=== PATIENT | male | born 1990 | race Caucasian/White ===

== ENCOUNTER 2020-06-02 22:42 | Inpatient (IN) | payer OTHER, SELFPAY ==
[2020-06-02 22:49] VITALS: BP 135/84; PULSE 106; RESP 16; TEMP 36.8; O2SAT 99; BMI 34.0
--- NOTE | 2020-06-02 23:07 | ECG_ITS ---
Test Reason : CHEST PAIN Blood Pressure : / mmHG Vent. Rate : 101 BPM Atrial Rate : 101 BPM P-R Int : 148 ms QRS Dur : 082 ms QT Int : 324 ms P-R-T Axes : 012 -08 012 degrees QTc Int : 420 ms Sinus tachycardia Minimal voltage criteria for LVH, may be normal variant Cannot rule out Anterior infarct , age undetermined Abnormal ECG No previous ECGs available Referred By: Dariana Colon Electronically Signed By:SIMEON ROSARIO MD
--- NOTE | 2020-06-02 23:07 | XR_ITS ---
EXAMINATION: XR CHEST CLINICAL INFORMATION: Right-sided chest pain and cough COMPARISON: None TECHNIQUE: Frontal view of the chest was obtained. FINDINGS: Lungs are hypoinflated. There is some ill-defined patchy density seen at the lung bases which could represent atelectasis or possibly infiltrates. No effusions are seen. The heart size is normal. XR/XR chest 1V IMPRESSION: Hypoinflated lungs with basilar atelectasis versus ill-defined patchy infiltrates.
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
[2020-06-02] MEDS: Morphine Sulfate 2 MG/ML CARTRIDGE IVPUSH (23:47)
[2020-06-02] MEDS: 0.9 % Sodium Chloride 1,000 ML 999 ML IVCONT (23:48)
[2020-06-02] MEDS: Ketorolac Tromethamine 15 MG/ML VIAL IV (23:48)
[2020-06-03] VITALS: BP 120/72; PULSE 100; RESP 18; O2SAT 97
[2020-06-03 00:06] LABS: Basophils Percent Auto 0.3 % (0-2); Eosinophils Absolute Auto 0.1 X10*3/uL (0.0-0.4); Eosinophils Percent Auto 0.9 % (0-4); Hematocrit 42.8 % (42-52); Hemoglobin 14.3 g/dl (14.0-18.0); Imm Gran Abs Auto 0.03 X10*3/uL (0.00-0.03); Imm Gran Pct Auto 0.3 % (0.0-0.4); MANUAL DIFF FLAG NO; Mean Corpuscular HGB Conc 33.4 g/dl (31.0-36.0); Mean Corpuscular Hemoglobin 31.4 pg (27.0-33.0); Mean Corpuscular Volume 93.9 fL (80-98); Mean Platelet Volume 10.1 fL (9.4-12.4); Monocytes Absolute Auto 0.9 X10*3/uL (0.1-1.2); Monocytes Percent Auto 7.6 % (2-11); Neutrophils Absolute Auto 9.2 X10*3/uL (2.0-8.3); Neutrophils Percent Auto 81.9 % (45-73); Platelet Count 204 X10*3/uL (160-400); Red Blood Count 4.56 X10*6/uL (4.60-5.80); Red Cell Distribution Width 11.8 % (11.0-16.0); White Blood Count 11.2 X10*3/uL (4.8-10.8)
[2020-06-03 00:25] LABS: Lactic Acid 1.8 mmol/L (0.5-2.0)
[2020-06-03 00:27] LABS: COVID-19 Test Negative (Negative)
[2020-06-03 00:30] LABS: Alanine Aminotransferase 33 U/L (0-40); Albumin Level 4.2 g/dL (3.5-5.0); Alkaline Phosphatase 56 U/L (39-117); Anion Gap 14 (12-20); Aspartate Amino Transferase 16 U/L (5-37); Bilirubin Direct 0.5 mg/dL (0.0-0.5); Blood Urea Nitrogen 13 mg/dL (9-16); Carbon Dioxide 29 mmol/L (22-29); Chloride 102 mmol/L (96-108); Creatinine Clr Calc Pharmacy 159.8; Estimated Glomerular Filt Rate > 60; Glucose Random 106 mg/dL (60-115); Lipase 14 U/L (8-78); Sodium 141 mmol/L (135-145); Total Protein 6.6 g/dL (6.5-8.0)
[2020-06-03 00:34] LABS: B Type Natriuretic Peptide < 10 pg/mL (<100); Troponin-I High Sensitivity < 3.5 ng/L (<3.5-35.0)
[2020-06-03 00:36] LABS: D Dimer 2149 NG/ML
--- NOTE | 2020-06-03 01:23 | CT_ITS ---
EXAMINATION: CT ANGIOGRAM OF THE CHEST WITH AND WITHOUT CONTRAST (CT PULMONARY ANGIOGRAM FOR PE) CLINICAL INFORMATION: Reason for Exam Right-sided chest pain, elevated D-dimer COMPARISON: None TECHNIQUE: Prior to contrast administration, noncontrast localization images were obtained. Subsequently, multidetector volumetric imaging was performed from the thoracic inlet to below the diaphragms following the administration of 65.2 mL Omnipaque 350 intravenous contrast. No contrast reaction reported Sagittal, coronal, and MIP oblique sagittal reformatted images were obtained on the CT workstation, uploaded to PACS, and reviewed. This CT examination was performed using dose optimization techniques as appropriate, variously including the following: *Automated exposure control *Adjustment of mA and/or kV according to patient size (this includes techniques or standardized protocols for targeted exams where dose is matched to indication/reason for exam; i.e. extremities or head) *Use of iterative reconstruction technique Total exam dose-length product 570 mGy-cm FINDINGS: QUALITY OF STUDY/CONTRAST BOLUS: Satisfactory. PULMONARY ARTERIES: Intraluminal filling defects are identified within the segmental and subsegmental branches at the basilar segments of the left lower lobe and in the lobar, segmental, and subsegmental branches of the right upper, middle, and lower lobes. The small filling defects are suspected within the segmental branches of the left upper lobe as well. No central pulmonary emboli. THORACIC AORTA: No aneurysm or dissection. LUNG: There is a wedge-shaped region of mixed groundglass and dense consolidation in the lateral basilar segment of the right lower lobe, most likely corresponding to pulmonary infarct. A smaller wedge-shaped focus of airspace opacification in the posterior basilar segment of the right lower lobe may correspond to atelectasis or a smaller infarct. Multifocal bandlike atelectasis is present in both lungs, most notably in the lingula and lower lobes. Additional patchy foci of groundglass attenuation in the lingula and left upper lobe are more nonspecific. Central airways are clear PLEURA: No pleural effusion or pneumothorax. MEDIASTINUM: Normal heart size. No pericardial effusion. No hilar or mediastinal lymphadenopathy. No evidence of septal bowing or right heart strain. CHEST WALL/AXILLA: No axillary or internal mammary lymphadenopathy. OSSEOUS STRUCTURES: No acute or suspicious osseous abnormality. UPPER ABDOMEN: Hepatic steatosis is suggested by the rotator hypoattenuation of the hepatic parenchyma. Otherwise, no acute upper abdominal abnormalities. No reflux of contrast into the hepatic veins to suggest elevated right heart pressures. CT/CT angio chest PE protocol IMPRESSION: Moderate volume of acute pulmonary emboli throughout both lungs without evidence of right heart strain or elevated pressures. Acute pulmonary infarct in the lateral basilar segment of the right lower lobe. Multifocal atelectasis. Patchy groundglass opacities in the left upper lobe and lingula may be due to the pulmonary emboli, though a superimposed infectious process is also possible. Query COVID positivity. VTE: positive This critical result was discussed by telephone with Dr. Clark at 3:07 AM on 06/03/2020.
[2020-06-03] MEDS: HYDROmorphone HCl 1 MG/ML SYRINGE IVPUSH (01:40)
[2020-06-03] MEDS: iohexoL 350 MG/ML 100 ML INFUS..BTL 65 ML IV (02:52)
[2020-06-03 03:19] VITALS: PULSE 68; O2SAT 94
--- NOTE | 2020-06-03 03:20 | PC.NURSE ---
IN ROOM FOR RE-EVAL. PT IS POSSIBLE ADMISSION. PT AWAITING FOR ROOM ASSIGNMENT.
--- NOTE | 2020-06-03 05:30 | PC.NURSE ---
HOSPITALIST IN ROOM FOR EVAL.
[2020-06-03 05:36] LABS: Hematocrit 38.7 % (42-52); Hemoglobin 12.8 g/dl (14.0-18.0); Mean Corpuscular HGB Conc 33.1 g/dl (31.0-36.0); Mean Corpuscular Hemoglobin 31.1 pg (27.0-33.0); Mean Corpuscular Volume 94.2 fL (80-98); Mean Platelet Volume 10.2 fL (9.4-12.4); Platelet Count 167 X10*3/uL (160-400); Red Blood Count 4.11 X10*6/uL (4.60-5.80); Red Cell Distribution Width 11.8 % (11.0-16.0); White Blood Count 8.9 X10*3/uL (4.8-10.8)
--- NOTE | 2020-06-03 05:40 | PM.IMHP ---
History of Present Illness Date of Service: 06/03/20 Chief Complaint: SOB, right chest pain No significant past medical history who presents to the hospital with complaints of shortness of breath for the past 1 day. Patient reports that he started feeling pain in his right shorter that then traveled to his right chest, difficulty breathing, difficulty taking a deep breath without having pain in the right chest and decided to come to the ED. He is not feeling very tired and fatigued. He otherwise denies having significant cough, no swelling in his leg, no recent surgery, no recent travel, no recent sick contacts. Patient reports that he has been working the whole time and has not been inactive or bed-bound recently. He has no abdominal pain nausea or vomiting, no diarrhea constipation. No urinary symptoms and no lower extremity edema. Patient hemodynamically stable with a heart rate of 106 otherwise no abnormal vitals Lab significant for normal WBC, hemoglobin of 12.8, hematocrit of 30.7, otherwise unremarkable CMP. COVID-19 negative, CT angiogram shows moderate volume of acute pulmonary emboli throughout both lungs without evidence of right heart strain or elevated Past medical history: Denies Surgical history: Ankle surgery, appendectomy, tummy tuck Family history: Mother has type 1 diabetes, cancer runs in family although not in his immediate Social history: Comes from home, denies any tobacco alcohol or illicit drugs. Review of Systems Review of Systems: Yes all other systems are reviewed and are negative [facility] Social History Advance Directives: No Meds Allergies Allergy/AdvReac Type Severity Reaction Status Date / Time No Known Allergies Allergy Verified 06/02/20 23:06 Home Medications Medication Instructions Recorded Confirmed Type dextroamphetamine-amphetamine 20 mg PO DAILY 06/03/20 06/03/20 History [Adderall] gabapentin 300 mg PO TID 06/03/20 06/03/20 History Physical Exam Vital Signs and Narrative: Vital Signs: Last Vital Signs Temp 98.2 F 06/02/20 22:49 Pulse 100 06/03/20 00:00 Resp 18 06/03/20 00:00 BP 120/72 06/03/20 00:00 Pulse Ox 97 06/03/20 00:00 Body Mass Index 34.0 Const: Other: Appears tired General: cooperative and no acute distress Orientation/consciousness: patient oriented x3 Eyes: General: appearance normal, both eyes and all related structures Resp: Effort & Inspection: normal respiratory effort and able to speak in complete sentences Cardio: Rate: regular rate Rhythm: regular rhythm GI: Palpation (GI): Soft to palpation Auscultation: normal bowel sounds Skin: General skin exam: no rashes or lesions noted Neuro: General: patient oriented x3 Cognition (Neuro): normal cognition Extrem: General: Yes normal to inspection and Yes no pedal edema Results Labs CBC and Chem 7: 06/02/20 23:53 06/02/20 23:53 Labs: Laboratory Results - last 24 hr 06/02/20 06/02/20 06/02/20 23:53 23:53 23:53 MCV 93.9 MCH 31.4 MCHC 33.4 RDW 11.8 Plt Count 204 MPV 10.1 Immature Gran % (Auto) 0.3 Neut % (Auto) 81.9 H Lymph % (Auto) 9.0 L [place] % (Auto) 7.6 Eos % (Auto) 0.9 Baso % (Auto) 0.3 Lymph # (Auto) 1.0 L [place] # (Auto) 0.9 Eos # (Auto) 0.1 Baso # (Auto) 0.0 Abs Immat Gran (auto) 0.03 Absolute Neuts (auto) 9.2 H Absolute Nucleated RBC 0.000 Nucleated RBC % (auto) 0.0 D-Dimer 2149 Anion Gap 14 Estim Creat Clear Calc 159.8 Estimated GFR > 60 Random Glucose 106 Lactic Acid Calcium 9.0 Total Bilirubin 1.0 Direct Bilirubin 0.5 AST 16 ALT 33 Alkaline Phosphatase 56 Troponin I High Sens B-Natriuretic Peptide Total Protein 6.6 Albumin 4.2 Lipase 14 COVID-19 (DOT) COVID-19 Clin Com 06/02/20 06/02/20 06/02/20 23:53 23:54 23:54 MCV MCH MCHC RDW Plt Count MPV Immature Gran % (Auto) Neut % (Auto) Lymph % (Auto) [place] % (Auto) Eos % (Auto) Baso % (Auto) Lymph # (Auto) [place] # (Auto) Eos # (Auto) Baso # (Auto) Abs Immat Gran (auto) Absolute Neuts (auto) Absolute Nucleated RBC Nucleated RBC % (auto) D-Dimer Anion Gap Estim Creat Clear Calc Estimated GFR Random Glucose Lactic Acid 1.8 Calcium Total Bilirubin Direct Bilirubin AST ALT Alkaline Phosphatase Troponin I High Sens < 3.5 B-Natriuretic Peptide < 10 Total Protein Albumin Lipase COVID-19 (DOT) Negative COVID-19 Clin Com See Note Imaging Radiologist's Impressions: Impressions Chest X-Ray 06/02/20 23:07 IMPRESSION: Hypoinflated lungs with basilar atelectasis versus ill-defined patchy infiltrates. Chest CTA 06/03/20 01:23 IMPRESSION: Moderate volume of acute pulmonary emboli throughout both lungs without evidence of right heart strain or elevated pressures. Acute pulmonary infarct in the lateral basilar segment of the right lower lobe. Multifocal atelectasis. Patchy groundglass opacities in the left upper lobe and lingula may be due to the pulmonary emboli, though a superimposed infectious process is also possible. Query COVID positivity. VTE: positive This critical result was discussed by telephone with Dr. Clark at 3:07 AM on 06/03/2020. Assessment and Plan (1) Pulmonary embolism: Qualifiers: Acute cor pulmonale presence: without acute cor pulmonale Chronicity: acute Pulmonary embolism type: unspecified Qualified Code(s): I26.99 - Other pulmonary embolism without acute cor pulmonale Status: Acute This is a 29-year-old male with no significant past medical history who presents to the hospital with complaints of shortness of breath found to have a P. # bilateral PE - it appears to be unprovoked - has no risk factors, no recent surgery, no recent travel, no recent bed-bound - COVID-19 PCR negative, no history of cancer - no evidence of right heart strain or elevated pressures per CT angiogram Plan: - start him on Lovenox - echocardiogram - BNP for prognostication - will need to be on anticoagulation lifelong given his unprovoked moderate size PEs DVT prophylaxis: Lovenox
[2020-06-03 05:45] LABS: INTERNATIONAL NORM RATIO 1.3 (0.9-1.1); Prothrombin Time 15.6 SEC (10.8-13.0)
[2020-06-03 05:47] LABS: Partial Thromboplastin Time 33.8 SEC (24.1-38.0)
--- NOTE | 2020-06-03 05:47 | CA_ITS ---
Transthoracic Echocardiogram Patient (Last, First, Middle): LANA GONZALES, Gender: Male Date of : 1990 Age: 29 Procedure Date: 06/03/2020 Procedure Type: Transthoracic [place] [facility] [place]: 187.96 cm Weight: 108.86 kg BSA: 2.35 m2 Heart Rate: bpm BP: 120 / 72 mmHg Chair Lift Operator: Referring MD: Marcella Kohler MD Air Bag Buffer: Ming Rasmussen MD Symptoms: Pulmonary Embolism Study Quality: Fair ECG Rhythm: Sinus Conclusions: - 1. Normal LV systolic and diastolic function 2. Mildly dilated right ventricle with free wall hypokinesis suggestive acute RV strain 3. Normal cardiac valvular Doppler 4. Normal RV systolic pressure 5. No pericardial effusion Findings Left Ventricle Normal left ventricular size, thickness, and systolic function. The visually estimated ejection fraction is between 60-65%. Diastolic function is normal for age. Right Ventricle The right ventricle was not well visualized. RV is not well visualized due to off axis views however there appears to be free wall hypokinesis with apical sparing with mildly dilated right ventricle. This findings are consistent with acute RV strain due to pulmonary embolism Atria The left atrium is normal in size. Interatrial shunt cannot be excluded. The right atrium was not well visualized. Aortic Valve Normal aortic valve structure and function. There is no aortic valve stenosis. There is no aortic valve regurgitation. Mitral Valve Normal mitral valve structure and function. There is trace mitral valve regurgitation. There is no mitral valve stenosis. Pulmonic Valve The pulmonic valve was not well visualized. Tricuspid Valve Likely normal tricuspid valve structure and function. The right ventricular systolic pressure is normal. The right ventricular systolic pressure is 26 mmHg. There is no evidence of pulmonary hypertension. Great Vessels All visible segments of the aorta are normal in size. The pulmonary artery was not well visualized. Venous The inferior vena cava is normal in size and collapses greater than 50% with inspiration. Prior Study Comparison No prior study available for comparison. Measurements 2D Linear Measurements IVSd: 1.11 0.6-0.9/0.6-1.0 cm LVIDd: 4.50 3.9-5.3/4.2-5.9 cm LVIDd Index: 1.91 2.4-3.2/2.2-3.1 cm/m2 LVIDs: 2.80 2.0-3.6 cm LVPWd: 1.19 0.7-1.1 cm Ao Root: 3.10 2.1-3.5 cm LA Diam: 3.80 2.7-3.8/3.0-4.0 cm LAIDs Index: 1.62 1.5-2.3 cm/m2 LV Mass: 232.24 67-162/88-224 g LV Mass Index: 98.83 43-95/49-115 g/m2 LVOT Diam: 2.50 3.0+(-)1.3 cm Mitral Valve MV Pk E: 0.86 MV PK A: 0.48 MV Decel Time: 151.00 E/A: 1.80 E'Lateral: 14.90 E'Medial: 11.60 E/E' Med: 7.40 E/E' Lat: 5.80 PHT: 44.00 MVA PHT: 5.00 Decel [place]: 5.67 Aortic Valve AoV Pk [place]: 1.13 AoV Mn [place]: 0.69 AoV VTI: 0.22 AoV Pk Grad: 5.00 Aov Mn Grad: 2.00 CLEMENTINE Cont.VTI: 3.74 LVOT LVOT Pk [place]: 0.78 LVOT Mn [place]: 0.49 LVOT VTI: 0.17 LVOT Pk Grad: 2.00 LVOT Mn Grad: 1.00 LVOT Diam: 2.50 LVOT Area: 4.91 Diastolic Function MV Pk E: 0.86 MV Pk A: 0.48 E/A: 1.80 E'Medial: 11.60 E/E' Med: 7.40 E' Laterial: 14.90 E/E' Lat: 5.80 Tricuspid Valve TR Pk [place]ito: 2.38 TR Pk Grad: 23.00 RA Press: 3.00 RVSP: 26.00 Great Vessels Aorta Ao Root-2D: 3.10 2.0-3.7 cm Ao Asc: 2.80 2.1-3.4 cm Pulmonary Valve PV Pk Benito: 1.14 Peak PV Grad: 5.00 Updated in Other Vendor System with Status of Final Ming Rasmussen MD electronically signed on 06/03/2020 4:37:38 PM with status of Final
[2020-06-03 06:50] LABS: B Type Natriuretic Peptide < 10 pg/mL (<100)
[2020-06-03] MEDS: Enoxaparin Sodium 100 MG/ML SYRINGE 120 MG SUBCUT (09:33)
[2020-06-03] MEDS: 0.9 % Sodium Chloride Flush 3 ML SYRINGE IVFLUSH ×2 (09:36→20:15)
--- NOTE | 2020-06-03 12:03 | MHC.CM.PN ---
Met with patient in regards to discharge planning. Patient lives with his and 2 daughters, ambulates independently and had no services prior to coming to the hospital. No services anticipated to be needed because patient is not homebound. PCP verified. Patient's will transport him home when medically stable. Patient has bilateral PE's. Per H&P, will need lifelong anticoagulation. Per Dr Lei, anticipate patient will be on Eliquis. Eliquis card given to patient and explained. Patient verbalized understanding. Continue to monitor for d/c needs.
--- NOTE | 2020-06-03 12:27 | PM.EVENT ---
Event Note Date of Service: 06/03/20 Event Note: S seen and examined in the ED reports pain improved O vitals - last documented Gen - NAD CVS - S1S2 Lungs - CLear, no distress Abd - NT/ND A/P 29 yo M with bilateral PE, moderate clot burden per CT with pulm infarct on the RLL admitted for fruther treatment Lovenox 1mg/kg BID -- likely Eilquis 10mg BID x 7 days, followed by 5mg bid there after (will start tomorrow) Echo to evaluate RV strain, but non appreciated on CT imaging hypercoag work up ordered hemodynamically stable at this time
[2020-06-03 15:24] VITALS: BP 123/73; PULSE 83; RESP 25; O2SAT 98
[2020-06-03] MEDS: Enoxaparin Sodium 120 MG/0.8 ML SYRINGE SUBCUT (20:12)
[2020-06-03 20:26] VITALS: BMI 30.8
[2020-06-03 20:43] VITALS: BP 140/73; PULSE 91; RESP 18; TEMP 37.2; O2SAT 94
[2020-06-04] VITALS: BP 138/69; PULSE 97; RESP 18; TEMP 36.9; O2SAT 95
[2020-06-04] MEDS: 0.9 % Sodium Chloride Flush 3 ML SYRINGE IVFLUSH ×2 (01:50→07:44)
[2020-06-04] MEDS: ondansetron HCL 4 MG/2 ML VIAL IVPUSH (01:50)
[2020-06-04 03:35] VITALS: BP 138/75; PULSE 96; RESP 18; TEMP 36.3; O2SAT 98
[2020-06-04 03:59] LABS: INTERNATIONAL NORM RATIO 1.3 (0.9-1.1); Prothrombin Time 15.8 SEC (10.8-13.0)
[2020-06-04 04:18] LABS: Anion Gap 12 (12-20); Blood Urea Nitrogen 12 mg/dL (9-16); Calcium 8.3 mg/dL (8.4-10.2); Carbon Dioxide 27 mmol/L (22-29); Chloride 105 mmol/L (96-108); Creatinine Clr Calc Pharmacy 163.1; Estimated Glomerular Filt Rate > 60; Glucose Random 101 mg/dL (60-115); Potassium 4.1 mmol/l (3.3-5.1); Sodium 140 mmol/L (135-145)
[2020-06-04 07:46] VITALS: BP 115/61; PULSE 75; RESP 20; TEMP 36.9; O2SAT 98
[2020-06-04 08:00] VITALS: BP 115/61; PULSE 75; RESP 20; TEMP 36.9; O2SAT 98
[2020-06-04] MEDS: Acetaminophen 325 MG TABLET 650 MG PO (08:00)
[2020-06-04] MEDS: Enoxaparin Sodium 120 MG/0.8 ML SYRINGE SUBCUT (08:00)
[2020-06-04 10:39] VITALS: O2SAT 95
--- NOTE | 2020-06-04 10:57 | PM.DS ---
DS: Providers Provider Date of Service: 06/04/20 Date of admission: 06/03/20 03:19 Primary care physician: Cristobal Lewis MD DS: Diagnosis Discharge Diagnosis (1) Pulmonary embolism: Status: Acute (2) Pulmonary infarct: Status: Acute DS: Medications Discharge Medications Home Medications: Home Medications Medication Instructions Recorded Confirmed dextroamphetamine-amphetamine 20 mg PO DAILY 06/03/20 06/03/20 [Adderall] gabapentin 300 mg PO TID 06/03/20 06/03/20 Previous Rx's Medication Instructions Recorded apixaban [Eliquis] 5 mg PO BID #60 tab 06/04/20 DS: Summary Hospital Course Hospital Course: HPI: No significant past medical history who presents to the hospital with complaints of shortness of breath for the past 1 day. Patient reports that he started feeling pain in his right shorter that then traveled to his right chest, difficulty breathing, difficulty taking a deep breath without having pain in the right chest and decided to come to the ED. He is not feeling very tired and fatigued. He otherwise denies having significant cough, no swelling in his leg, no recent surgery, no recent travel, no recent sick contacts. Patient reports that he has been working the whole time and has not been inactive or bed-bound recently. He has no abdominal pain nausea or vomiting, no diarrhea constipation. No urinary symptoms and no lower extremity edema. Patient hemodynamically stable with a heart rate of 106 otherwise no abnormal vitals Lab significant for normal WBC, hemoglobin of 12.8, hematocrit of 30.7, otherwise unremarkable CMP. COVID-19 negative, CT angiogram shows moderate volume of acute pulmonary emboli throughout both lungs without evidence of right heart strain or elevated Hospital Course: Patient was admitted for pulmonary embolism which was described as moderate clot burden on the CT scan. He was treated with Lovenox 1 milligram/kilogram twice a day. He underwent 2D echo which was reviewed with Critical Care who did not feel the patient would benefit from tPA. He was transitioned to oral Eliquis 10 mg twice daily for 7 days followed by 5 mg twice daily thereafter. A hypercoagulable workup has been ordered and pending at the time of discharge. He is to follow-up with PCP and can be referred to Hematology if needed. Time Spent with Patient Time attestation: Total time spent providing and/or coordinating discharge services: Discharge coordination time: Greater than 30 minutes Physical Exam Vital Signs: Vital Signs: Last Vital Signs Temp 98.4 F 06/04/20 08:00 Pulse 75 06/04/20 08:00 Resp 20 06/04/20 08:00 BP 115/61 06/04/20 08:00 Pulse Ox 95 06/04/20 10:39 Body Mass Index 30.8 General - no acute distress, appears comfortable Cardiovascular - regular rate and rhythm, S1-S2 Lungs - normal respiratory effort, clear to auscultation bilaterally, no wheezing Abdomen - soft, nontender, no rebound or guarding Extremities - no edema bilaterally Neuro - awake and alert, no focal deficits DS: Data Data Completed and Pending Labs on day of discharge: Laboratory Tests 06/02/20 06/02/20 06/02/20 23:53 23:53 23:53 WBC 11.2 H RBC 4.56 L Hgb 14.3 Hct 42.8 MCV 93.9 MCH 31.4 MCHC 33.4 RDW 11.8 Plt Count 204 MPV 10.1 Immature Gran % (Auto) 0.3 Neut % (Auto) 81.9 H Lymph % (Auto) 9.0 L [place] % (Auto) 7.6 Eos % (Auto) 0.9 Baso % (Auto) 0.3 Lymph # (Auto) 1.0 L [place] # (Auto) 0.9 Eos # (Auto) 0.1 Baso # (Auto) 0.0 Abs Immat Gran (auto) 0.03 Absolute Neuts (auto) 9.2 H Absolute Nucleated RBC 0.000 Nucleated RBC % (auto) 0.0 PT INR APTT D-Dimer 2149 Sodium 141 Potassium 4.0 Chloride 102 Carbon Dioxide 29 Anion Gap 14 BUN 13 Creatinine 0.93 Estim Creat Clear Calc 159.8 Estimated GFR > 60 Random Glucose 106 Lactic Acid Calcium 9.0 Total Bilirubin 1.0 Direct Bilirubin 0.5 AST 16 ALT 33 Alkaline Phosphatase 56 Troponin I High Sens B-Natriuretic Peptide Total Protein 6.6 Albumin 4.2 Lipase 14 COVID-19 (DOT) COVID-19 Clin Com 06/02/20 06/02/20 06/02/20 23:53 23:54 23:54 WBC RBC Hgb Hct MCV MCH MCHC RDW Plt Count MPV Immature Gran % (Auto) Neut % (Auto) Lymph % (Auto) [place] % (Auto) Eos % (Auto) Baso % (Auto) Lymph # (Auto) [place] # (Auto) Eos # (Auto) Baso # (Auto) Abs Immat Gran (auto) Absolute Neuts (auto) Absolute Nucleated RBC Nucleated RBC % (auto) PT INR APTT D-Dimer Sodium Potassium Chloride Carbon Dioxide Anion Gap BUN Creatinine Estim Creat Clear Calc Estimated GFR Random Glucose Lactic Acid 1.8 Calcium Total Bilirubin Direct Bilirubin AST ALT Alkaline Phosphatase Troponin I High Sens < 3.5 B-Natriuretic Peptide < 10 Total Protein Albumin Lipase COVID-19 (DOT) Negative COVID-19 Clin Com See Note 06/03/20 06/03/20 06/03/20 05:32 05:32 05:48 WBC 8.9 RBC 4.11 L Hgb 12.8 L Hct 38.7 L MCV 94.2 MCH 31.1 MCHC 33.1 RDW 11.8 Plt Count 167 MPV 10.2 Immature Gran % (Auto) Neut % (Auto) Lymph % (Auto) [place] % (Auto) Eos % (Auto) Baso % (Auto) Lymph # (Auto) [place] # (Auto) Eos # (Auto) Baso # (Auto) Abs Immat Gran (auto) Absolute Neuts (auto) Absolute Nucleated RBC 0.000 Nucleated RBC % (auto) 0.0 PT 15.6 H INR 1.3 H APTT 33.8 D-Dimer Sodium Potassium Chloride Carbon Dioxide Anion Gap BUN Creatinine Estim Creat Clear Calc Estimated GFR Random Glucose Lactic Acid Calcium Total Bilirubin Direct Bilirubin AST ALT Alkaline Phosphatase Troponin I High Sens B-Natriuretic Peptide < 10 Total Protein Albumin Lipase COVID-19 (DOT) COVID-19 [employer] Com 06/04/20 06/04/20 03:46 03:46 WBC RBC Hgb Hct MCV MCH MCHC RDW Plt Count MPV Immature Gran % (Auto) Neut % (Auto) Lymph % (Auto) [place] % (Auto) Eos % (Auto) Baso % (Auto) Lymph # (Auto) [place] # (Auto) Eos # (Auto) Baso # (Auto) Abs Immat Gran (auto) Absolute Neuts (auto) Absolute Nucleated RBC Nucleated RBC % (auto) PT 15.8 H INR 1.3 H APTT D-Dimer Sodium 140 Potassium 4.1 Chloride 105 Carbon Dioxide 27 Anion Gap 12 BUN 12 Creatinine 0.87 Estim Creat Clear Calc 163.1 Estimated GFR > 60 Random Glucose 101 Lactic Acid Calcium 8.3 L D Total Bilirubin Direct Bilirubin AST ALT Alkaline Phosphatase Troponin I High Sens B-Natriuretic Peptide Total Protein Albumin Lipase COVID-19 (DOT) COVID-19 Clin Com Preliminary micro results at discharge 06/02/20 23:54 Blood Culture - Preliminary Blood - Venous No growth after 24 hours. 06/02/20 23:53 Blood Culture - Preliminary Blood - Venous No growth after 24 hours. Discharge Plan Discharge Patient Disposition: Home, Self-Care Referrals: Cristobal Lewis MD [Primary Care Provider] - Discharge Medications: New Eliquis 5 mg tablet 5 mg PO BID Qty: 60 RF: 0 Continued dextroamphetamine-amphetamine [Adderall] 20 mg Tablet 20 mg PO DAILY RF: 0 gabapentin 300 mg Capsule 300 mg PO TID RF: 0 Discharge Orders: Discharge Order (Routine); Ordered 06/04/20 Ordered By: Warren Lei Diet: advance to usual diet Activity on Discharge: As tolerated Visit Report Forms: Patient Portal Discharge page Care Plan Goals: To stay healthy and out of the hospital. Health Concerns: Pulmonary Emoblism Plan of Treatment: Take Eliquis 10mg twice daily for 7 days. After this take Eliquis 5mg twice daily. You need to follow up with your primary care doctor within the next 7-10 days for f/u for the results of your blood testing completed in the hospital. If your pain worsens, if you cough up blood, if you have worsening trouble breathing -- please return to the hospital immediately.
--- NOTE | 2020-06-04 10:58 | MHC.CM.PN ---
met with pt confirmed that he nhas eloquis card which he does his will transport him home
[2020-06-04 11:24] VITALS: BP 118/66; PULSE 65; RESP 20; TEMP 36.4; O2SAT 95
[2020-06-04 18:57] LABS: Homocysteine 8.1 umol/L (<11.4)
[2020-06-04 21:42] LABS: Cardiolipin IgG Ab <14 GPL; Cardiolipin IgM Ab <12 MPL
[2020-06-05 15:23] LABS: Hexagonal Phase Neutralization WEAKLY POSITIVE (NEGATIVE); PTT (LAC) Screen 45 sec (< OR = 40); Thrombin Clotting Time 22 sec (13-19)
[2020-06-05 22:02] LABS: Anti-Thrombin III Antigen 69 % (80-120)
[2020-06-05 22:27] LABS: Protein C Activity 78 % (70-180); Protein S Activity rflx Tot&Fr 95 % (70-150)
== END 2020-06-04 12:16 | disposition home or self-care (01) | DRG 176 ==
LOC: HO.ED 06-03 03:16 → HO.EDOVER 06-03 08:50 → HO.IMC 06-03 17:57
PROVIDERS: Emergency Medicine; Admitting Provider Internal Medicine; Emergency Provider Emergency Medicine; PCP Internal Medicine; Visit Provider Family Medicine
DX: I26.99 Other pulmonary embolism without acute cor pulmonale (principal); Z20.828 Contact with and (suspected) exposure to other viral communicable diseases; Z79.899 Other long term (current) drug therapy
CPT/HCPCS: 36415; 71045; 71275; 80048; 80076; 81240; 81241; 83090; 83605; 83690; 83880; 84484; 85025; 85027; 85301; 85302; 85303; 85305; 85306; 85379; 85597; 85610; 85613; 85730; 86147; 87040; 87635; 93005; 93306; 96361; 96372; 96374; 96375; 99285; J1170; J1650; J1885; J2270; J2405; Q9967